=== PATIENT | male | born 1980 | race Caucasian/White ===

== ENCOUNTER 2017-08-30 11:06 | Emergency (ER) | payer OTHER ==
[~2017-08-30] VITALS: Ht 180.3 cm; Wt 90.7 kg
[2017-08-30 11:08] VITALS: BP 142/85
[2017-08-30] MEDS ORDERED: IBUPROFEN600 MG ORAL (11:19)
[2017-08-30] MEDS ORDERED: CLINDAMYCIN HC300 MG ORAL (11:19)
--- NOTE | 2017-08-30 11:22 | Emergency Room Report ---
History of Present Illness General Chief Complaint: Toothache Source: Patient Present Illness HPI Patient presents with complaint of right lower dental pain Reports that several years ago had implant However never had the top aspect of the implant placed and essentially once a year he has noticed that he gets infections in the gingival and dental region pain is 4 out of 10 Worse with chewing he expressed some pus from the area yesterday when he squeezes the region Denies any neck pain or photophobia Allergies: Coded Allergies: No Known Allergies (Unverified , 08/30/17) Patient History Past Medical History: see triage record Pertinent Family History: none Reviewed Nursing Documentation: PMH: Agreed; PSxH: Agreed Nursing Documentation-PMH Past Medical History: No History, Except For Review of Systems All Other Systems: negative except mentioned in HPI Physical Exam Vital Signs Date Time Temp Pulse Resp B/P (MAP) Pulse Ox O2 Delivery O2 Flow Rate FiO2 08/30/17 11:08 98.1 100 16 142/85 96 Room Air 98.1 Sp02 EP Interpretation: reviewed, normal General Appearance: well appearing, no apparent distress Head: normocephalic, atraumatic Eyes: bilateral eye PERRL, bilateral eye EOMI ENT: other - Some increased edema and swelling to the right lower gingival area adjacent to the back molar. No obvious discharge from the area. airway patent Neck: full range of motion, supple Respiratory: lungs clear Cardiovascular #1: regular rate, rhythm, no murmur Musculoskeletal: normal inspection Neurologic: alert, oriented x3, responsive Skin: normal color, no rash Lymphatic: no adenopathy Medical Decision Making Diagnostic Impression: Primary Impression: Toothache Additional Impression: dental abscess ER Course Patient's presentation is consistent with likely infection involving the dental/ gingival region Patient is placed on oral antibiotics he reports that clindamycin usually works better And requires close dental follow-up Last Vital Signs Date Time Temp Pulse Resp B/P (MAP) Pulse Ox O2 Delivery O2 Flow Rate FiO2 08/30/17 11:08 98.1 100 16 142/85 96 Room Air 98.1 Status: unchanged Disposition: HOME, SELF-CARE Condition: Stable Scripts Ibuprofen* (MOTRIN*) 600 Mg Tablet 600 MG ORAL Q8H PRN for For Pain, #20 TAB 0 Refills Prov: Nekchi Lopez DO 08/30/17 Clindamycin Hcl (CLINDAMYCIN HCL) 300 Mg Capsule 300 MG ORAL THREE TIMES A DAY, #30 CAP Prov: Nkechi Lopez DO 08/30/17 Patient Instructions: Dental Abscess, [id number] Additional Instructions: Patient is provided with the discharge instructions notified to follow up with primary doctor in the next 2-3 days otherwise return to the er with any worsening symptoms. Please note that this report is being documented using DRAGON technology. This can lead to erroneous entry secondary to incorrect interpretation by the dictating instrument. Nkechi Lopez DO Aug 30, 2017 11:22
[2017-08-30 11:25] VITALS: BP 142/85
== END 2017-08-30 11:25 | disposition home or self-care (01) ==
LOC: EMR 11:17
DX: K04.7 Periapical abscess without sinus (principal)
CPT/HCPCS: 99284